=== PATIENT | female | born 1955 | race Caucasian/White ===

== ENCOUNTER → 2017-12-09 08:12 | Outpatient (CLI) | payer OTHER, SELFPAY ==
--- NOTE | 2017-12-09 | DI.MG.S_ITS ---
BILATERAL DIGITAL SCREENING MAMMOGRAM 3D/2D WITH CAD: 12/09/2017 CLINICAL: Routine screening. Family history of breast cancer. Comparison is made to exams dated: 11/19/2016 mammogram, 11/19/2015 mammogram, and 09/09/2014 mammogram - [facility]. The tissue of both breasts is heterogeneously dense. This may lower the sensitivity of mammography. Current study was also evaluated with a Computer Aided Detection (CAD) system. There is an oval mass in the left breast at 1 o'clock anterior depth. There also is an oval mass in the left breast at 12 o'clock posterior depth. No other significant masses, calcifications, or other findings are seen in either breast. IMPRESSION: INCOMPLETE: NEEDS ADDITIONAL IMAGING EVALUATION The oval mass in the left breast at 1 o'clock anterior depth is indeterminate. Additional views with possible ultrasound are recommended. The oval mass in the left breast at 12 o'clock posterior depth is indeterminate. Additional views with possible ultrasound are recommended. This exam was interpreted at Station ID: [id number]. NOTE: For mammograms, a report in lay terms will be sent to the patient. Approximately 15% of breast malignancies will not be visualized mammographically. In the management of a palpable breast mass, a negative mammogram must not discourage biopsy of a clinically suspicious lesion. Electronically Signed By: Fabi castillo/frederick:12/09/2017 10:15:30 letter sent: Additional Imaging Needed ACR BI-RADS Category 0: Incomplete [id number]
== END ==
PROVIDERS: Family Provider Family Medicine; PCP Family Medicine; Visit Provider Family Medicine
DX: Z12.31 Encounter for screening mammogram for malignant neoplasm of breast (principal); Z80.3 Family history of malignant neoplasm of breast; R92.8 Other abnormal and inconclusive findings on diagnostic imaging of breast
CPT/HCPCS: 77063; 77067

== ENCOUNTER → 2017-12-22 12:46 | Outpatient (CLI) | payer OTHER, SELFPAY ==
--- NOTE | 2017-12-22 12:49 | DI.US.S_ITS ---
ULTRASOUND OF LEFT BREAST: 12/22/2017 CLINICAL: Patient returns for additional imaging over a suspected mass x 2 in the left breast. Comparison is made to exams dated: 12/22/2017 mammogram, 12/09/2017 mammogram, 11/25/2016 mammogram, and 11/19/2016 mammogram - [facility]. Color flow ultrasound of the left breast was performed. Garland scale images of the real-time examination were reviewed. There is a benign 1.3 cm x 1.3 cm x 0.8 cm cyst in the left breast at 12 o'clock posterior depth 8 cm from the nipple. This correlates with mammography findings. There also is a benign 0.6 cm x 0.6 cm x 0.5 cm cyst in the left breast at 12 o'clock anterior depth 2 cm from the nipple. This correlates with mammography findings. IMPRESSION: BENIGN There is no sonographic evidence of malignancy. The 1.3 cm x 1.3 cm x 0.8 cm cyst in the left breast at 12 o'clock posterior depth is benign. The 0.6 cm x 0.6 cm x 0.5 cm cyst in the left breast at 12 o'clock anterior depth is benign. A 1 year screening mammogram is recommended. This exam was interpreted at Station ID: [id number]. Electronically Signed By: Lennox man/frederick:12/23/2017 12:59:48 letter sent: Normal Exam Ultrasound BI-RADS: 2 Benign
--- NOTE | 2017-12-22 12:49 | DI.MG.S_ITS ---
UNILATERAL LEFT DIGITAL DIAGNOSTIC MAMMOGRAM 3D/2D WITH ADDITIONAL VIEWS: 12/22/2017 CLINICAL: Additional evaluation requested from prior study. Comparison is made to exams dated: 12/09/2017 mammogram, 11/25/2016 mammogram, and 11/19/2016 mammogram - [facility]. The tissue of the left breast is heterogeneously dense. This may lower the sensitivity of mammography. There is a 6 mm round low density mass with a circumscribed margin in the left breast at 12 o'clock anterior depth. There also is a 1.4 cm round low density mass with a circumscribed margin in the left breast at 12 o'clock posterior depth. No other significant masses or calcifications are seen in the breast. IMPRESSION: INCOMPLETE: NEEDS ADDITIONAL IMAGING EVALUATION The 6 mm round low density mass in the left breast at 12 o'clock anterior depth is indeterminate. An ultrasound is recommended. The 1.4 cm round low density mass in the left breast at 12 o'clock posterior depth is indeterminate. An ultrasound is recommended. This exam was interpreted at Station ID: [id number]. NOTE: For mammograms, a report in lay terms will be sent to the patient. Approximately 15% of breast malignancies will not be visualized mammographically. In the management of a palpable breast mass, a negative mammogram must not discourage biopsy of a clinically suspicious lesion. Electronically Signed By: Lennox man/frederick:12/22/2017 16:16:57 ACR BI-RADS Category 0: Incomplete [id number]
== END ==
PROVIDERS: Family Provider Family Medicine; PCP Family Medicine; Visit Provider Family Medicine
DX: R92.8 Other abnormal and inconclusive findings on diagnostic imaging of breast (principal); N60.02 Solitary cyst of left breast
CPT/HCPCS: 76642; 77065; G0279

== ENCOUNTER → 2018-01-26 09:15 | Outpatient (CLI) | payer OTHER, SELFPAY ==
[2018-01-26 09:53] LABS: Add Manual Diff / Slide Review NO; Basophils Percent Auto 0.8 % (0-2); Eosinophils Percent Auto 5.1 % (2-4); Hematocrit 41.8 % (36-46); Hemoglobin 14.2 g/dL (12.0-16.0); Mean Corpuscular HGB Conc 33.9 % (30-36); Mean Corpuscular Hemoglobin 31.8 PG (26-34); Mean Corpuscular Volume 93.7 fL (80-100); Monocytes Percent Auto 7.9 % (3-14); Neutrophils Absolute Auto 2800 /uL (3000-5900); Neutrophils Percent Auto 50.2 % (50-75); Platelet Count 256 X10^3/uL (150-400); Red Blood Cell Count 4.46 X10^6/uL (4.0-5.2); Red Cell Distribution Width 12.8 % (11.6-14.8); White Blood Cell Count 5.5 X10^3/uL (4.5-11.0)
[2018-01-26 10:19] LABS: BUN Creatinine Ratio 17.1 (6-22); Blood Urea Nitrogen 12 mg/dL (7-17); Calcium 9.4 mg/dL (8.4-10.2); Carbon Dioxide 28 mmol/L (22-32); Chloride 106 mmol/L (98-107); Estimated Glomerular Filt Rate > 60.0 mL/min (>60); Glucose 99 mg/dL (80-110); Potassium 4.5 mmol/L (3.4-5.1); Sodium 142 mmol/L (137-145)
[2018-01-26 10:20] LABS: Alanine Aminotransferase 23 IU/L (9-52); Albumin 4.4 g/dL (3.5-5.0); Albumin Globulin Ratio 1.5 (1.0-2.8); Alkaline Phosphatase 51 U/L (38-126); Aspartate Aminotransferase 26 IU/L (14-36); Bilirubin Total 0.6 mg/dL (0.2-1.3); Globulin 2.9 g/dL (1.7-4.1); HDL Cholesterol 103 mg/dL (40-60); HEMOLYSIS < 15 (0-50); Total Protein 7.3 g/dL (6.3-8.2); Triglycerides 158 mg/dL (35-150)
[2018-01-26 10:28] LABS: Cholesterol 323 mg/dL (140-199); LDL Cholesterol Calculated 188 mg/dL (<100)
[2018-01-26 10:46] LABS: TSH w/ Reflex to FT4 2.94 uIU/mL (0.47-4.68)
== END ==
PROVIDERS: Family Provider Family Medicine; PCP Family Medicine; Visit Provider Family Medicine
DX: E78.2 Mixed hyperlipidemia (principal); Z00.00 Encounter for general adult medical examination without abnormal findings
CPT/HCPCS: 36415; 80053; 80061; 84443; 85025

== ENCOUNTER → 2018-02-03 12:56 | Outpatient (CLI) | payer OTHER, SELFPAY ==
[2018-02-07 22:45] LABS: Fecal Immunochemical Test NOT DETECTED
== END ==
PROVIDERS: PCP Family Medicine; Visit Provider Family Medicine
DX: Z12.11 Encounter for screening for malignant neoplasm of colon (principal)
CPT/HCPCS: 82274

== ENCOUNTER → 2018-07-05 10:31 | Outpatient (CLI) | payer OTHER, SELFPAY | PROVIDERS: Family Provider Family Medicine; PCP Family Medicine; Visit Provider Family Medicine | DX: R35.0 Frequency of micturition (principal) | CPT/HCPCS: 87077; 87086; 87147 ==

== ENCOUNTER 2018-07-19 18:26 | Observation (INO) | payer OTHER, SELFPAY ==
[2018-07-19] VITALS (9 sets, daily range): BP systolic 116–156; BP diastolic 64–78; PULSE 61–81; RESP 14–20; TEMP 36.6–36.8; O2SAT 98–100; BMI 21.9
--- NOTE | 2018-07-19 18:33 | DI.RAD.S_ITS ---
PROCEDURE: XR CHEST 1V INDICATIONS: chest pain TECHNIQUE: One view of the chest was acquired. COMPARISON: None. FINDINGS: Surgical changes and devices: None. Lungs and pleura: No pleural effusions or pneumothorax. Lungs are clear. Mediastinum: Mediastinal contours appear normal. Heart size is normal. Bones and chest wall: No suspicious bony lesions. Overlying soft tissues appear unremarkable. IMPRESSION: Normal for age, source of current chest pain symptoms is not seen. Dictated by: Hema Garces M.D. on 07/19/2018 at 19:23 Approved by: Hema Garces M.D. on 07/19/2018 at 19:24
--- NOTE | 2018-07-19 19:18 | ED_ITS ---
HPI - Chest Pain General Chief Complaint: Chest Pain Stated Complaint: DESCRIBES WEIRD CHEST PAINS Time Seen by Provider: 07/19/18 18:49 Source: patient Mode of arrival: ambulatory Limitations: no limitations History of Present Illness HPI narrative: Patient is a 63-year-old female who presents with epigastric pain. She says she has never experienced anything like this in the past. Of it started around 530 she has had multiple episodes that come about every 15 min or so. She says they last for about 2 min completely resolved. She says it does radiate straight through to her back. She denies any nausea no shortness of breath no vomiting. She says it is not associated with exertion or rest. She is currently chest pain free. No known coronary artery disease. She says she does have hyperlipidemia, she was on medication for it but is no longer. MD complaint: chest pain Related Data Home Medications Medication Instructions Recorded Confirmed aspirin 81 mg PO QDAY #0 01/31/17 07/12/18 cholecalciferol (vitamin D3) 2,000 2,000 unit PO DAILY 02/07/18 07/12/18 unit capsule Previous Rx's Medication Instructions Recorded acyclovir 200 mg capsule 200 mg PO DAILY PRN #60 cap 02/07/18 coenzyme Q10 100 mg capsule 100 mg PO DAILY #90 cap 02/07/18 estradiol 1 mg tablet 0.5 mg PO DAILY #15 tab 02/07/18 vit C,E,zinc,copper-ijhig7b 250 1 cap PO DAILY #90 cap 02/07/18 mg-lutein 5 mg-zeaxanthin 1 mg capsule Allergies Allergy/AdvReac Type Severity Reaction Status Date / Time latex Allergy Mild SKIN Verified 07/19/18 18:34 IRRITATION erythromycin base AdvReac Mild GI UPSET Verified 07/19/18 18:34 Review of Systems Review of Systems GENERAL: Denies chills, fatigue, malaise, fever, sweats, travel HEENT: Denies sinus pain, ear pain, sore throat, difficulty swallowing, neck pain RESPIRATORY: Denies dyspnea, cough, wheezing, hemoptysis, sputum. CARDIOVASCULAR: See HPI GASTROINTESTINAL: Denies nausea, vomiting, abdominal pain, diarrhea, constipation, melena. : Denies dysuria, frequency, incontinence, hematuria, urinary retention, flank pain. MUSCULOSKELETAL: Denies weakness, joint pain, or bony pain SKIN: No rash, no erythema, no pruritus NEUROLOGIC: Denies weakness, dizziness, headache, numbness, change in speech, confusion PSYCHIATRIC: No concerning psychosocial issues. 12 point review of systems is negative except for those stated above and HPI [facility] Social History household members: spouse Smoking Status: Never smoker Exam Initial Vital Signs Initial Vital Signs: Vital Signs Temperature 98.2 F 07/19/18 18:34 Pulse Rate 81 07/19/18 18:34 Respiratory Rate 15 07/19/18 18:34 Blood Pressure 156/78 H 07/19/18 18:34 Pulse Oximetry 99 07/19/18 18:34 GENERAL: Well-appearing, well-nourished and in no acute distress. HEENT: Head atraumatic,EOMI, pupils reactive, face symmetric, moist mucous membranes CARDIOVASCULAR: Regular rate and rhythm without murmurs, rubs or gallops. RESPIRATORY: Breath sounds equal bilaterally, no wheezes rales or rhonchi. ABDOMEN: Soft, nontender. Normoactive bowel sounds all 4 quadrants. No guarding or rebound. : No CVA tenderness EXTREMITIES: Normal range of motion, no clubbing or edema. Neurovascularly intact NEUROLOGICAL: Alert and oriented x4.Normal gait and speech. Cranial nerves II through XII grossly intact. SKIN: Warm, dry, no laceration, no petechiae, no rashes or lesions. Scores HEART Score Heart Score history: Moderately Suspicious Heart Score EKG: Non-Specific repolarization disturbance Heart Score Age: 45-64 years old Heart Score risk factors: 1-2 risk factors Heart Score troponin: < or = to normal limit Heart Score Total: 4 Course Orders Ordered: ED Orders 07/19/18 18:33 XR chest 1V Stat 07/19/18 19:15 Complete Blood Count AUTO DIFF Stat Comprehensive Metabolic Panel Stat Lipase Stat Partial Thromboplastin Time Stat Prothrombin Time INR Stat Troponin & CK Cardiac Panel Stat 07/19/18 19:22 EKG-12 Lead Stat 07/19/18 23:48 Consult to Physician Routine 07/20/18 03:15 Troponin I Stat Sodium Chloride (Normal Saline 0.9% Flush) 10 ml IV PRN PRN PRN Reason: Flush Sodium Chloride (Normal Saline 0.9% Flush) 10 ml IV BID CHONG Discontinued Medications Aspirin (Aspirin Chew) 324 mg PO NOW ONE Stop: 07/19/18 19:22 Last Admin: 07/19/18 19:29 Dose: 324 mg Nitroglycerin (Nitrostat) 0.4 mg SL [id number] PRN PRN Reason: Chest Pain Last Admin: 07/19/18 19:25 Dose: 0.4 mg Vital Signs - 8 hr 07/19/18 18:34 07/19/18 19:00 07/19/18 19:25 Temperature 98.2 F Pulse Rate 81 73 78 Respiratory Rate 15 14 Blood Pressure 156/78 H 124/72 Blood Pressure [Left Arm] 124/72 Pulse Oximetry 99 100 07/19/18 19:30 07/19/18 20:00 07/19/18 20:30 Temperature Pulse Rate 73 63 67 Respiratory Rate 19 20 Blood Pressure 133/71 Blood Pressure [Left Arm] 116/64 131/66 Pulse Oximetry 100 100 07/19/18 21:00 07/19/18 21:30 07/19/18 22:10 Temperature 97.8 F Pulse Rate 64 77 69 Respiratory Rate 14 19 16 Blood Pressure 150/75 H Blood Pressure [Left Arm] 120/74 124/69 Pulse Oximetry 99 99 07/20/18 00:45 Temperature 98.1 F Pulse Rate 63 Respiratory Rate 16 Blood Pressure 120/68 Blood Pressure [Left Arm] Pulse Oximetry 97 MDM - Chest Pain Lab Data Attestation: I reviewed the patient's lab results. Result diagrams: 07/19/18 19:15 07/19/18 19:15 Lab Results 07/19/18 07/19/18 07/19/18 Range/Units 19:15 19:15 19:15 WBC 7.3 (4.5-11.0) X10^3/uL RBC 4.38 (4.0-5.2) X10^6/uL Hgb 13.6 (12.0-16.0) g/dL Hct 40.5 (36-46) % MCV 92.3 (80-100) fL MCH 31.0 (26-34) PG MCHC 33.6 (30-36) % RDW 12.7 (11.6-14.8) % Plt Count 286 (150-400) X10^3/uL Neut % (Auto) 51.7 (50-75) % Lymph % (Auto) 38.4 (25-40) % [place] % (Auto) 6.0 (3-14) % Eos % (Auto) 2.7 (2-4) % Baso % (Auto) 1.2 (0-2) % Neut # (Auto) 3800 (5937-2856) /uL PT 11.5 (10.1-12.7) SECONDS INR 1.0 (0.9-1.3) APTT 29 (26.4-36.2) SECONDS Sodium 140 (137-145) mmol/L Potassium 3.9 (3.4-5.1) mmol/L Chloride 104 (98-107) mmol/L Carbon Dioxide 27 (22-32) mmol/L BUN 18 H (7-17) mg/dL Creatinine 0.80 (0.52-1.04) mg/dL Estimated GFR > 60.0 (>60) mL/min BUN/Creatinine Ratio 22.5 H (6-22) Glucose 93 (80-110) mg/dL Calcium 9.7 (8.4-10.2) mg/dL Total Bilirubin 0.1 L (0.2-1.3) mg/dL AST 31 (14-36) IU/L ALT 24 (9-52) IU/L Alkaline Phosphatase 60 (38-126) U/L Total Creatine Kinase 105 (30-135) U/L CK-MB (CK-2) 1.83 (<2.37) ng/mL CK-MB (CK-2) Rel Index 1.7 (1.5-5.0) % Troponin I < 0.012 (0.01-0.034) ng/mL Total Protein 7.5 (6.3-8.2) g/dL Albumin 4.5 (3.5-5.0) g/dL Globulin 3.0 (1.7-4.1) g/dL Albumin/Globulin Ratio 1.5 (1.0-2.8) Lipase 180 (23-300) U/L Imaging Data Chest x-ray: Radiologist's impression: PROCEDURE: XR CHEST 1V INDICATIONS: chest pain TECHNIQUE: One view of the chest was acquired. COMPARISON: None. FINDINGS: Surgical changes and devices: None. Lungs and pleura: No pleural effusions or pneumothorax. Lungs are clear. Mediastinum: Mediastinal contours appear normal. Heart size is normal. Bones and chest wall: No suspicious bony lesions. Overlying soft tissues appear unremarkable. IMPRESSION: Normal for age, source of current chest pain symptoms is not seen. Dictated by: Hema Garces M.D. on 07/19/2018 at 19:23 ECG Data Attestation: I personally reviewed and interpreted this ECG as follows: Prior ECG tracings: not available for review Interpretation: EKG 1.: Normal sinus rhythm rate 77 IN interval 170 for Q-wave noted in lead 3 with T-wave inversion no priors to compare no acute ST elevations EKG 2.: Normal sinus rhythm rate 67 no changes from prior persistent Q-wave and T-wave inversion in lead 3 MDM Narrative Medical decision making narrative: Patient's symptoms are concerning for cardiac. His she actually does have an episode while in the ED she received nitroglycerin which does relieve her chest pain. No further symptoms. I discussed case with Dr. Ashby who agrees with observation. Discharge Plan Departure Patient Disposition: Admitted as Observation Clinical Impression: Chest pain Discharge Date/Time: 07/19/18 22:07 Interventions: ED Discharge Assessment Last Done: 07/19/18 22:06 Admit Date/Time: 07/19/18 21:48 Admit Provider: Juan Ashby
[2018-07-19] MEDS: NITROGLYCERIN 0.4 MG SL TAB SL (19:25)
[2018-07-19 19:27] LABS: Add Manual Diff / Slide Review NO; Basophils Percent Auto 1.2 % (0-2); Eosinophils Percent Auto 2.7 % (2-4); Hematocrit 40.5 % (36-46); Hemoglobin 13.6 g/dL (12.0-16.0); Lymphocytes Percent Auto 38.4 % (25-40); Mean Corpuscular HGB Conc 33.6 % (30-36); Mean Corpuscular Volume 92.3 fL (80-100); Neutrophils Absolute Auto 3800 /uL (1500-7000); Neutrophils Percent Auto 51.7 % (50-75); Platelet Count 286 X10^3/uL (150-400); Red Blood Cell Count 4.38 X10^6/uL (4.0-5.2); Red Cell Distribution Width 12.7 % (11.6-14.8); White Blood Cell Count 7.3 X10^3/uL (4.5-11.0)
[2018-07-19] MEDS: ASPIRIN 81 MG TAB 324 MG PO (19:29)
[2018-07-19 19:37] LABS: Alanine Aminotransferase 24 IU/L (9-52); Albumin 4.5 g/dL (3.5-5.0); Albumin Globulin Ratio 1.5 (1.0-2.8); Alkaline Phosphatase 60 U/L (38-126); Aspartate Aminotransferase 31 IU/L (14-36); BUN Creatinine Ratio 22.5 (6-22); Bilirubin Total 0.1 mg/dL (0.2-1.3); Blood Urea Nitrogen 18 mg/dL (7-17); Calcium 9.7 mg/dL (8.4-10.2); Carbon Dioxide 27 mmol/L (22-32); Chloride 104 mmol/L (98-107); Creatine Kinase 105 U/L (30-135); Estimated Glomerular Filt Rate > 60.0 mL/min (>60); Glucose 93 mg/dL (80-110); HEMOLYSIS < 15 (0-50); Lipase 180 U/L (23-300); Potassium 3.9 mmol/L (3.4-5.1); Sodium 140 mmol/L (137-145); Total Protein 7.5 g/dL (6.3-8.2)
[2018-07-19 19:52] LABS: Troponin I < 0.012 ng/mL (0.01-0.034)
[2018-07-19 19:53] LABS: CKMB % Relative Index 1.7 % (1.5-5.0); Creatine Kinase MB 1.83 ng/mL (<2.37)
[2018-07-19 19:56] LABS: Prothrombin Time 11.5 SECONDS (10.1-12.7)
[2018-07-19 19:59] LABS: PTT Partial Thromboplastin Tim 29 SECONDS (26.4-36.2)
--- NOTE | 2018-07-20 | DI.ECHO.S_ITS ---
[facility] +---------+ Hospital +---------+ : : [address] [place] : : : : [id number] : : : : Phone: [phone]+ Echocardiogram Report + + :Name: LUIS F TORRES Study Date: 07/20/2018 Height: 64 in : :[facility] Weight: 129 lb : : Gender: Female BSA: 1.6 m2 : :: 1955 Age: 63 yrs BP: 130/72 mmHg: :Reason For Study: Chest pain : : Performed By: Gabby Teresa : :Referring: PÉREZ MARTINEZ : + + Interpretation Summary Limited Echo 1) Normal left ventricular thickness, size, wall motion, and systolic function (EF 60-65%). 2) No pericardial effusion present. 3) The right ventricular systolic pressure is estimated to be at least 22 mmHg based on an estimated right atrial pressure of 3 mm Hg. 4) No prior Echo available for comparison. Procedure: A two-dimensional transthoracic echocardiogram with color flow and Doppler was performed in limited views only. The study quality was technically good. There is no prior echocardiogram noted for this patient. The patient was in normal sinus rhythm during the exam. Left Ventricle: The left ventricle is normal in size, wall thickness, and systolic function without any focal wall motion abnormalities. The ejection fraction is estimated to be 60-65%. Right Ventricle: The right ventricle grossly appears normal in size with probable normal systolic function. Atria: The left atrial size is normal. Right atrial size is normal. The interatrial septum is intact with no evidence for an atrial septal defect. Mitral Valve: The mitral valve is normal in structure and function. Aortic Valve: The aortic valve is not well visualized. The aortic valve opens well. No aortic regurgitation is present. Tricuspid Valve: The tricuspid valve is normal in structure and function. There is a trace or physiologic amount of tricuspid regurgitation. The right ventricular systolic pressure is estimated to be at least 22 mmHg based on an estimated right atrial pressure of 3 mm Hg. Pulmonic Valve: The pulmonic valve is normal in structure and function. There is no pulmonic valvular regurgitation. Great Vessels: The aortic root is normal size. The dimensions of the ascending aorta are normal. The IVC is of normal diameter and collapses greater than 50% with a sniff. This suggests a low right atrial pressure of 3 mm Hg. Pericardium/ Pleura There is no pericardial effusion. There is no pleural effusion. MMode/2D Measurements & Calculations LVIDd: 4.7 cm Ao root diam: 3.4 cm LVIDs: 2.7 cm Aortic Jxn: 2.8 cm FS: 43.1 % asc Aorta Diam: 3.0 cm IVSd: 0.68 cm LVPWd: 0.79 cm LV clark. diameter/BSA (cm/m^2): 2.9 LV sys. diameter/BSA (cm/m^2): 1.6 LA dimension: 2.7 cm IVC diam: 1.0 cm Doppler Measurements & Calculations TR max cecily: 215.3 cm/sec TR max P.5 mmHg PA V2 max: 105.3 cm/sec PA V2 mean: 71.0 cm/sec PA mean P.3 mmHg PA Accel Time: 0.16 sec Reading Physician:01:26 PM
--- NOTE | 2018-07-20 00:32 | PC.NURSE ---
2245-Pt arrived to room 231 from ED via bed. A/O x3, 99%RA, LS clear, denies SOB, pain and nausea. Plan is to have a stress test in AM. TANVIR FONSECA, Indep to BRP. Call light in reach and bed alarm on for safety. Dr. Ashby orders for reg diet, no caffeine, but unable to put in computer.
[2018-07-20 00:45] VITALS: BP 120/68; PULSE 63; RESP 16; TEMP 36.7; O2SAT 97
[2018-07-20 04:03] LABS: Troponin I < 0.012 ng/mL (0.01-0.034)
[2018-07-20 06:31] VITALS: BP 124/67; PULSE 66; RESP 16; TEMP 36.6; O2SAT 99
[2018-07-20 08:30] VITALS: BP 130/72; PULSE 71; RESP 18; TEMP 36.4; O2SAT 99
[2018-07-20] MEDS: SODIUM CHLORIDE 0.9% FLUSH 10 ML IV (08:37)
[2018-07-20 08:49] VITALS: O2SAT 99
--- NOTE | 2018-07-20 09:30 | P.HP_ITS ---
History of Present Illness Date Patient Seen: 07/20/18 Time Patient Seen: 07:25 Chief complaint: DESCRIBES WEIRD CHEST PAINS Narrative: Chest pain Patient was admitted to the ER last night having experience intermittent chest pain for most of the day. She believes chest pain started about 17 30 last evening. Pain is retrosternal burning in nature some radiation of his subcostal bilaterally. Later on and course the evening she began to have pain radiating to her back. She was concerned about this being cardiac present to the ER. She was a may evaluated in ER and felt to have chest pain of unknown etiology. The she did have episode of chest pain emergency room that apparently was resolved with nitroglycerin. She is admitted for overnight observation and monitoring and assessment for possible atypical chest pain and coronary artery disease. Patient has history of hyperlipidemia that is not being treated. Family history is negative for any coronary artery disease. Patient History Medical History Hyperlipidemia (Chronic) Shoulder pain (Chronic ~2008) Abnormal Pap smear of cervix (Resolved) Chicken pox (Resolved) Colon polyps (Resolved 2014) Hemorrhoids (Resolved) History of vaginal delivery (Resolved) Melanoma (Resolved 2013) Mumps (Resolved) Nodular infiltrative basal cell carcinoma (BCC) (Resolved 10/2012) Varicose veins of left lower extremity (Resolved) Wart (Resolved 1973) Surgical History Anesthesia (Resolved) Dental root implant present (Resolved 2009) History of cryosurgery (Resolved 1999) History of surgery on extremity (Resolved ~2004) History of tonsillectomy (Resolved 1959) Status post colonoscopy (Resolved 03/2004) Status post colonoscopy (Resolved 05/2011) Status post colonoscopy (Resolved 09/2014) Family & Social History Family History: Reviewed 07/20/18 by Juan Ashby MD Social History: household members spouse Prior Living Arrangements House Safety & Behavioral: Feels Safe in Current Yes Environment Suicidal Ideation Description None Suicide Plan Description No Plan Tobacco & Substance use: Smoking Status Never smoker alcohol intake frequency holiday/special occasion Substance Use Type does not use Meds Home Medications Medication Instructions Recorded Confirmed Type aspirin 81 mg PO QDAY #0 01/31/17 07/20/18 History acyclovir 200 mg capsule 200 mg PO DAILY PRN #60 cap 02/07/18 07/20/18 Rx cholecalciferol (vitamin D3) 2,000 2,000 unit PO DAILY 02/07/18 07/20/18 History unit capsule coenzyme Q10 100 mg capsule 100 mg PO DAILY #90 cap 02/07/18 07/20/18 Rx estradiol 1 mg tablet 0.5 mg PO DAILY #15 tab 02/07/18 07/20/18 Rx vit C,E,zinc,copper-[id number] 250 1 cap PO DAILY #90 cap 02/07/18 07/20/18 Rx mg-lutein 5 mg-zeaxanthin 1 mg capsule Allergies Allergy/AdvReac Type Severity Reaction Status Date / Time latex Allergy Mild SKIN Verified 07/19/18 18:34 IRRITATION erythromycin base AdvReac Mild GI UPSET Verified 07/19/18 18:34 Review of Systems Review of Systems All systems reviewed & are unremarkable except as noted in HPI and below Exam Vital Signs (past 8 hours): - 07/20/18 06:31 07/20/18 08:30 07/20/18 08:49 Temperature 97.8 F 97.6 F Pulse Rate 66 71 Respiratory Rate 16 18 Blood Pressure 124/67 130/72 Pulse Oximetry 99 99 99 Oxygen Delivery Method Room Air Oxygen Flow Rate 0 Narrative Exam Narrative: Gen.: Skin: Warm well perfused. No prominent lesions. Nonicteric. HEENT: PERRL., normal EOM, external ears canals TMs normal, nasal mucosa normal and midline septum, oropharynx without lesions. Neck: Trachea midline. Thyroid nontender and not enlarged. Carotids without bruits. No lymphadenopathy Back: No obvious deformity or tenderness. Chest: Clear to P&A. Symmetric. CV: RRR no murmur or gallop. No JVD. Abdomen: No masses bruits tenderness or visceromegaly. Neuro: Cranial nerves II through XII grossly intact. Sensory and motor exams intact. Gait normal. Mental status: Intact for screening Extremities: No cyanosis clubbing or edema Musculoskeletal: No gross deformities Lymphatics: Negative for lymphadenopathy, supraclavicular axillary or inguinal Objective Labs Result Diagrams: 07/19/18 19:15 07/19/18 19:15 Labs: Laboratory Results - last 24 hr 07/19/18 07/19/18 07/19/18 19:15 19:15 19:15 WBC 7.3 RBC 4.38 Hgb 13.6 Hct 40.5 MCV 92.3 MCH 31.0 MCHC 33.6 RDW 12.7 Plt Count 286 Neut % (Auto) 51.7 Lymph % (Auto) 38.4 [place] % (Auto) 6.0 Eos % (Auto) 2.7 Baso % (Auto) 1.2 Neut # (Auto) 3800 PT 11.5 INR 1.0 APTT 29 Sodium 140 Potassium 3.9 Chloride 104 Carbon Dioxide 27 BUN 18 H Creatinine 0.80 Estimated GFR > 60.0 BUN/Creatinine Ratio 22.5 H Glucose 93 Calcium 9.7 Total Bilirubin 0.1 L AST 31 ALT 24 Alkaline Phosphatase 60 Total Creatine Kinase 105 CK-MB (CK-2) 1.83 CK-MB (CK-2) Rel Index 1.7 Troponin I < 0.012 Total Protein 7.5 Albumin 4.5 Globulin 3.0 Albumin/Globulin Ratio 1.5 Lipase 180 07/20/18 03:18 WBC RBC Hgb Hct MCV MCH MCHC RDW Plt Count Neut % (Auto) Lymph % (Auto) [place] % (Auto) Eos % (Auto) Baso % (Auto) Neut # (Auto) PT INR APTT Sodium Potassium Chloride Carbon Dioxide BUN Creatinine Estimated GFR BUN/Creatinine Ratio Glucose Calcium Total Bilirubin AST ALT Alkaline Phosphatase Total Creatine Kinase CK-MB (CK-2) CK-MB (CK-2) Rel Index Troponin I < 0.012 Total Protein Albumin Globulin Albumin/Globulin Ratio Lipase labs reviewed as above Assessment & Plan Plan: Assessment/Plan Narrative: Patient admitted through the ER last night for atypical chest pain. Minimal risk factors basically would be hyperlipidemia although she her lipid profile showed she has a increased amount of HDL. Patient to have a cardiac workup including echocardiogram. Stress test to be scheduled. Presumed patient will be discharged after the above. Parentheses attempt to schedule stress test 0 unsuccessful today she will be have echocardiogram at noon and discharge stress test will be scheduled as an outpatient Quality VTE Deep Vein Thrombosis/Pulmonary Embolism Present on Admission: No
[2018-07-20 12:00] VITALS: BP 130/68; PULSE 69; RESP 16; TEMP 36.7; O2SAT 97
--- NOTE | 2018-07-20 15:16 | CM.DANOTE ---
Discharge Planning/Care Management DCP: assessment: case received, EMR reviewed and discussed in Team Rounds this morning. Pt is a 63 year old female who admitted last night to care of A physician team. Payer: [facility]. Plan per Dr. Ashby was for an ECHO at noon and, if pt was stable for same she would go home with cardiac stress test as an outpt (as per his report, this test was not available today ). Checked in now, see that pt has left already for home. A followup. Advanced directive, confirm from FAMILY Start: 07/20/18 00:30 Freq: Q24H Status: Discharge Protocol: Document 07/20/18 00:35 HCW (Rec: 07/20/18 03:28 HCW [id number]) Advance Directive, confirm on record Time 03:28 Person contacted Lotus Mazariegos Copy received No CM Discharge Assessment Start: 07/20/18 15:15 Freq: Status: Active Protocol: Document 07/20/18 15:15 ITV (Rec: 07/20/18 15:16 ITV [id number]) Discharge Planning Assessment Advance Directives? No History Provided By Patient Medical Record Prior Living Arrangements House Household Members spouse Review Status In Process Next Review Type Continued Stay Review
== END 2018-07-20 14:03 | disposition home or self-care (01) ==
LOC: ED 21:34 → AC 21:49
PROVIDERS: Admitting Provider Family Medicine; Emergency Provider Emergency Medicine; Family Provider Family Medicine; PCP Family Medicine; Visit Provider Family Medicine
DX: R07.89 Other chest pain (principal); E78.5 Hyperlipidemia, unspecified
CPT/HCPCS: 36415; 36591; 71045; 80053; 82550; 82553; 83690; 84484; 85025; 85610; 85730; 93005; 93306; 99283; 99285; G0378

== ENCOUNTER → 2018-08-16 10:36 | Outpatient (CLI) | payer OTHER, SELFPAY ==
[2018-07-19 22:35] VITALS: BMI 21.9
--- NOTE | 2018-08-16 11:32 | P.PCN_ITS ---
Cardiac Stress Test Report Referral & Results Date Patient Seen: 08/16/18 Requesting provider: Juan Ashby Indication: Chest pain Rest ECG: Unremarkable Procedure Note: Today following both written and verbal informed consent the patient was exercised according to a standard Umesh protocol patient went for a total of for minutes 47 sec achieving a maximum heart rate of 149 maximum systolic blood pressure of 170 to. This is approximately 7.0 METS. Exercise was terminated at this point because of targets her med and patient was frankly unable to keep up with the treadmill as she had severe difficulty figuring out how to walk on a treadmill. Patient was also given Cardiolite through a previously started Hep-Lock IV by the property technician approximately 1 minute prior to the cessation of exercise. There are no ST-T segment changes Normal heart rate and blood pressure response to exercise Functional aerobic impairment rated 10% in sedentary scale No dysrhythmia Impression: No evidence of ischemia based on ECG criteria Average exercise capacity Perfusion imaging to be reported separately Please note: Actual ECG tracings can be found in the PACS system.
--- NOTE | 2018-08-17 17:25 | DI.NM.S_ITS ---
DATE OF SERVICE: 08/16/2018 PROCEDURE PERFORMED: Exercise treadmill stress and rest myocardial perfusion imaging with gating to assess ejection fraction and regional wall motion. ORDERING PROVIDER: Juan Ashby MD INDICATIONS: The patient is a 63-year-old female without previous coronary disease it was recently evaluated in the emergency room with an episode of prolonged chest pain. EXERCISE TREADMILL TESTING: The patient was able to exercise for a total of 4 minutes 47 seconds on a standard Umesh protocol suggesting moderately impaired exercise capacity with an BRISA of +25%. She had normal heart rate and blood pressure response achieving a maximum heart rate of 149 bpm (96% of her predicted maximum). She had no chest discomfort. Her resting ECG appears normal with sinus rhythm. There is considerable motion artifact during stress testing but immediate post stress tracing show no concerning ST segment abnormalities. No arrhythmias were identified. At 3 minutes 30 seconds of exercise, at heart rate of 136 bpm, 27.8 mCi of technetium-99 Myoview was injected and the patient was imaged 15 minutes later using a gated SPECT acquisition protocol. The patient returned the following day and was reinjected with an additional 26.4 mCi of technetium-99 Myoview and was imaged 30 minutes later, again using a gated SPECT acquisition protocol. FINDINGS: 1. Raw Data: There is fairly good myocardial tracer uptake with only slight breast shadows noted. The lung/heart ratio is normal at 0.24 with a normal TID ratio of 0.89. 2. Quantitative Gated SPECT: Post stress ejection fraction is calculated at 80% without any focal wall motion abnormality. Resting ejection fraction is estimated at 74% with a normal resting end-diastolic volume of 76 mL. 3. Myocardial Perfusion Imaging: Immediate post stress supine images shows a normal perfusion pattern without any perfusion defects, supported by normal perfusion imaging in the prone position. The resting images show an identical perfusion pattern without any areas of improvement. CONCLUSION: 1. Normal myocardial perfusion study. 2. No evidence for myocardial ischemia, previous myocardial infarction. 3. Normal left ventricular systolic function without any focal wall motion abnormality. 4. Moderately impaired exercise capacity without angina or ECG evidence of ischemia YairLotus - RS/zena/ab doc#: [id number]/job#: [id number] dd: 08/17/2018 16:41:00 dt: 08/17/2018 17:10:00 DICTATING MD/COPIES TO: Farzad Avila MD; Juan Ashby MD COPIES MNE: CLOVIS; JOSELYN
== END ==
PROVIDERS: PCP Family Medicine; Visit Provider Family Medicine
DX: R07.9 Chest pain, unspecified (principal)
CPT/HCPCS: 78452; 93016; 93017; 93018; A9502

== ENCOUNTER → 2018-12-27 11:44 | Outpatient (CLI) | payer OTHER, SELFPAY ==
[2018-07-19 22:35] VITALS: BMI 21.9
--- NOTE | 2018-12-27 | DI.MG.S_ITS ---
BILATERAL DIGITAL SCREENING MAMMOGRAM 3D/2D WITH CAD: 12/27/2018 CLINICAL: Routine screening. Family history of breast cancer. Comparison is made to exams dated: 12/09/2017 mammogram, 11/25/2016 mammogram, and 11/19/2016 mammogram - [facility]. The tissue of both breasts is heterogeneously dense. This may lower the sensitivity of mammography. Current study was also evaluated with a Computer Aided Detection (CAD) system. There is an irregular equal density asymmetry with an indistinct margin in the right breast at 1 o'clock middle depth. There is architectural distortion associated with the asymmetry. No other significant masses, calcifications, or other findings are seen in either breast. IMPRESSION: INCOMPLETE: NEEDS ADDITIONAL IMAGING EVALUATION The irregular equal density asymmetry in the right breast is indeterminate. Mediolateral and spot compression views as well as additional views with possible ultrasound are recommended. This exam was interpreted at Station ID: [id number]. NOTE: For mammograms, a report in lay terms will be sent to the patient. Approximately 15% of breast malignancies will not be visualized mammographically. In the management of a palpable breast mass, a negative mammogram must not discourage biopsy of a clinically suspicious lesion. Electronically Signed By: Ramiro felder/frederick:12/27/2018 17:04:18 copy to: Minna Arreaga letter sent: Additional Imaging Needed ACR BI-RADS Category 0: Incomplete [id number]
== END ==
PROVIDERS: PCP Family Medicine; Visit Provider Internal Medicine
DX: Z12.31 Encounter for screening mammogram for malignant neoplasm of breast (principal); Z80.3 Family history of malignant neoplasm of breast
CPT/HCPCS: 77063; 77067

== ENCOUNTER → 2019-01-22 08:15 | Outpatient (CLI) | payer OTHER, SELFPAY ==
[2018-07-19 22:35] VITALS: BMI 21.9
--- NOTE | 2019-01-22 | DI.MG.S_ITS ---
UNILATERAL RIGHT DIGITAL DIAGNOSTIC MAMMOGRAM 3D/2D WITH ADDITIONAL VIEWS: 01/22/2019 CLINICAL: Additional evaluation requested from prior study. Comparison is made to exams dated: 12/27/2018 mammogram, 12/09/2017 mammogram, and 11/25/2016 mammogram - [facility]. The tissue of right breast is heterogeneously dense. This may lower the sensitivity of mammography. There is a 5mm irregular equal density asymmetry with an indistinct margin in the medial right breast middle depth. This is seen in additional views localizing to the lower, inner quadrant on CC view but not definitively confirmed on the lateral view. There is suggestion of architectural distortion associated with the asymmetry. No other significant masses or calcifications are seen in the breast. IMPRESSION: INCOMPLETE: NEEDS ADDITIONAL IMAGING EVALUATION The irregular equal density asymmetry in the right breast is indeterminate. An ultrasound is recommended and is scheduled to immediately follow this examination. This exam was interpreted at Station ID: [id number]. NOTE: For mammograms, a report in lay terms will be sent to the patient. Approximately 15% of breast malignancies will not be visualized mammographically. In the management of a palpable breast mass, a negative mammogram must not discourage biopsy of a clinically suspicious lesion. Electronically Signed By: Demetrius Fleming M.D. aty/:01/22/2019 09:09:42 copy to: Minna Arreaga ACR BI-RADS Category 0: Incomplete [id number]
--- NOTE | 2019-01-22 | DI.US.S_ITS ---
ULTRASOUND OF RIGHT BREAST: 01/22/2019 CLINICAL: Additional evaluation requested from prior study. Comparison is made to exams dated: 01/22/2019 mammogram, 12/27/2018 mammogram, 12/09/2017 mammogram, and 11/25/2016 mammogram - [facility]. Color flow and real-time ultrasound of the right breast were performed. Garland scale images of the real-time examination were reviewed. There is 0.6 cm x 0.2 cm x 1.6 cm wider than tall irregular mass in the right breast at 5 o'clock anterior depth 4 cm from the nipple with the long axis parallel to the skin. This irregular mass is hypoechoic. Color flow imaging demonstrates that there is an adjacent vascularity. This probably correlates with mammographic finding of concern. There also is 0.5 cm x 0.4 cm x 0.6 cm oval cyst in the right breast at 12 o'clock anterior depth 4 cm from the nipple. This oval cyst is hypoechoic with internal echoes. Color flow imaging demonstrates that there is no vascularity present. Additionally, there is 1.7 cm x 0.7 cm cyst in the right breast at 2 o'clock middle depth 4 cm from the nipple. This cyst is hypoechoic with internal echoes and posterior acoustic enhancement. Color flow imaging demonstrates that there is no vascularity present. IMPRESSION: SUSPICIOUS OF MALIGNANCY The 0.6 cm x 0.2 cm x 1.6 cm wider than tall irregular mass in the right breast at 5 o'clock anterior depth is suspicious of malignancy. This probably correlates with the mammographic finding of concern. An ultrasound guided biopsy is recommended. The 0.5 cm x 0.4 cm x 0.6 cm oval cyst in the right breast at 12 o'clock anterior depth likely represents a complicated cyst and is probably benign. The 1.7 cm x 0.7 cm cluster of complicated cysts in the right breast at 2 o'clock middle depth is also probably benign. Recommend short interval follow up mammogram and ultrasound of the right breast to document stability. Further evaluation may be warranted pending biopsy results of the 5:00 position lesion. This exam was interpreted at Station ID: [id number]. Electronically Signed By: Demetrius Fleming M.D. at/:01/22/2019 13:06:55 copy to: Minna Arreaga letter sent: Biopsy Required Ultrasound BI-RADS: 4 Suspicious abnormality
== END ==
PROVIDERS: Family Provider Internal Medicine; PCP Family Medicine; Visit Provider Internal Medicine
DX: R92.8 Other abnormal and inconclusive findings on diagnostic imaging of breast (principal); N63.14 Unspecified lump in the right breast, lower inner quadrant; N60.01 Solitary cyst of right breast
CPT/HCPCS: 76642; 77065; G0279

== ENCOUNTER → 2019-02-02 14:07 | Outpatient (CLI) | payer OTHER, SELFPAY ==
[2018-07-19 22:35] VITALS: BMI 21.9
--- NOTE | 2019-02-02 | DI.US.S_ITS ---
ULTRASOUND GUIDED BIOPSY RIGHT BREAST USING VACUUM DEVICE WITH MARKING DEVICE INSERTED AND POST DIGITAL MAMMOGRAPHIC IMAGIN02/02/2019 CLINICAL: Right breast mass. PATIENT CONSENT: Risks (minor bleeding, infection, vasovagal reaction and repeat procedure), benefits and alternatives were explained to the patient and written informed consent was obtained. Correlation is made to exams dated: 02/02/2019 mammogram, 01/22/2019 ultrasound, 01/22/2019 mammogram, 12/27/2018 mammogram, and 12/22/2017 mammogram - [facility]. An ultrasound guided biopsy using real-time ultrasound was performed for the 0.6 cm x 0.2 cm x 1.6 cm irregular shaped mass located in the right breast at 5 o'clock anterior depth 4 cm from the nipple. The skin was prepped in the usual manner. Local anesthetic was administered to the access site. A skin sammy was made in the breast. The abnormality was approached from the lateral aspect. A 13 gauge biopsy needle was placed adjacent to the abnormality under ultrasound guidance. Once the needle was documented to be in the correct location, five specimens were obtained using the Mammotome biopsy system. The patient received additional local anesthetic during the procedure. A clip was inserted into the biopsy cavity. A sterile dressing was applied to the access site. Post procedure digital mammographic imaging demonstrates the location device at the targeted area. The specimens were sent to the laboratory for pathological analysis. IMPRESSION: ULTRASOUND GUIDED BIOPSY MALIGNANT Ultrasound guided biopsy of the 0.6 cm x 0.2 cm x 1.6 cm mass in the right breast at 5 o'clock anterior depth 4 cm from the nipple was successful. Final pathology results per pathologist Dr. Crystal Granados identified malignant ductal carcinoma in situ. Pathology results are concordant with imaging. Surgical and oncology consults are recommended for further evaluation and management. Should the other probable complicated cysts identified in the right breast on comparison right breast ultrasound of 01/22/19 not be included in potential areas of resection, a follow-up diagnostic ultrasound in 6 months is recommended. These results will be communicated to the patient's referring provider. This exam was interpreted at Station ID: [id number]. Mundo Silverman M.D. [facility] [place]/:02/07/2019 08:36:17 copy to: Minna Arreaga
--- NOTE | 2019-02-02 | PATH_ITS ---
[facility] Accession Number: [id number] . 01 Material submitted: . breast - RIGHT BREAST MASS . 01 Clinical history: . A: RIGHT BREAST MASS 5:00 4 CM FROM NIPPLE . 01 Diagnosis: A. Right Breast Mass, 5 o'clock, 4 cm From Nipple: Ductal carcinoma in situ (DCIS), with the following features: - Architectural pattern: Micropapillary, Arcades/Bridges. - Nuclear grade: Intermediate. - Necrosis: Present (single cell necrosis). - Amount of DCIS: Present on one core, largest dimension of 1 mm. - Calcifications: Present, in association with DCIS and background breast parenchyma. - Estrogen receptor status: Positive (99% of neoplastic cells, intensity: Strong). Negative for invasive malignancy. Background breast with florid usual ductal hyperplasia, apocrine cystic metaplasia, columnar cell change/columnar cell hyperplasia, and possible features of radial scar. MRV/02/06/2019 . 01 Electronically signed: . Crystal Granados MD, Pathologist NPI- [id number] . 01 Gross description: . Received in formalin, labeled US/US BX breast perc w vac device, are multiple fragments of bright yellow and adame-white fibrofatty tissue (2.0 x 1.0 x 0.2 cm in aggregate. entirely submitted in one cassette. Note: Approximate total fixation time in formalin-63 hours 30 minutes, calculated using a collection date of 02/02/2019 with no collection time given. ([id number]) /MRV . 01 Microscopic: . The biopsy consists of multiple cores which contain a spectrum of intraductal proliferations, ranging from columnar cell change/hyperplasia, florid usual ductal hyperplasia, to atypical intraductal proliferation. In one core, spanning approximately 1 mm, an atypical intraductal proliferation demonstrates an architecture of micropapillary and arcades and bridges lined by cells of mild to moderate variability in nuclear shape, size, and placement, with chromatin hyperchromasia and clumping, variably conspicuous nucleoli, and occasional mitotic figures. . CK 5/6 and estrogen receptor are performed on block A1 in order to assess the intraductal proliferative lesions. The external controls stain appropriately. Areas of usual ductal hyperplasia demonstrate mosaic staining pattern of estrogen receptor and CK 5/6 in support of the diagnosis of florid usual ductal hyperplasia. The area of atypical intraductal proliferation is diffusely and strongly positive for ER (but is lost on the tissue section for CK 5/6), which along with the morphologic impression, support the diagnosis of ductal carcinoma in situ (DCIS). . DCIS has the following immunoreactivity: Estrogen receptor status: Positive (99% tumor cells staining; staining intensity: strong; Internal controls: positive) . Cold ischemic time is <5 minutes. The scoring criteria for breast biomarkers by immunohistochemstry is based on the current ASCO/CAP guidelines (Evette AC et al J Clin Oncol 2018: 2017 10;36(20):1638-3417). Deparaffinized sections of formalin fixed tissue (along with appropriate positive controls) are incubated with the above antibody(s). Using the automated [place] stainer, tissue is incubated with the designated antibody which is then localized by a non-biotin, dual polymer detection system. The external controls are reviewed for appropriate reactivity and found to be adequate. Results on the target call population are indicated above. These tests have not been validated on decalcified tissue. * This test was developed and its performance characteristics determined by [facility]. It has not been cleared or approved by the U.S. Food and Drug Administration. The FDA has determined that such clearance or approval is not necessary. This test is used for clinical purposes. It should not be regarded as investigational or for research. . 01 Pathologist provided ICD-10: D05.11 . 01 CPT . 408929, [id number], [id number] Performed at: 01 [facility] [address] [place] [address] [address], [place], [place] [id number] MD Ramiro Lunsford MD Phone: [phone]
--- NOTE | 2019-02-02 | DI.MG.S_ITS ---
UNILATERAL RIGHT DIGITAL DIAGNOSTIC MAMMOGRAM POST-NEEDLE BIOPSY: 02/02/2019 CLINICAL: Right breast mass. Comparison is made to exams dated: 01/22/2019 ultrasound, 01/22/2019 mammogram, 12/27/2018 mammogram, and 02/02/2019 ultrasound biopsy - [facility]. The tissue of right breast is heterogeneously dense. This may lower the sensitivity of mammography. There is a marker clip in the appropriate position in the right breast at 5 o'clock middle depth. This marker clip placement is at the biopsy site. IMPRESSION: POST PROCEDURE MAMMOGRAM FOR MARKER PLACEMENT There was a successful marker clip placement in the right breast middle depth. This exam was interpreted at Station ID: [id number]. NOTE: For mammograms, a report in lay terms will be sent to the patient. Approximately 15% of breast malignancies will not be visualized mammographically. In the management of a palpable breast mass, a negative mammogram must not discourage biopsy of a clinically suspicious lesion. Electronically Signed By: Mundo hernandez/penalma:02/02/2019 16:43:16 copy to: Minna Arreaga ACR BI-RADS Category Post-procedure mammogram for marker placement
== END ==
PROVIDERS: Family Provider Internal Medicine; PCP Family Medicine; Visit Provider Internal Medicine
DX: D05.11 Intraductal carcinoma in situ of right breast (principal)
CPT/HCPCS: 19083; 77065

== ENCOUNTER 2019-06-14 09:57 | Emergency (ER) | payer MEDICARE, OTHER, SELFPAY ==
[2018-07-19 22:35] VITALS: BMI 21.9
[2019-06-14 10:20] VITALS: BP 146/64; PULSE 62; RESP 16; TEMP 37.2; O2SAT 100
--- NOTE | 2019-06-14 11:22 | ED.WOUNDLAC ---
HPI - Wound/Laceration <EV Chowdary - Last Filed: 06/14/19 11:36> General Chief Complaint: Extremity Injury, Upper Stated Complaint: left little finger cut Time Seen by Provider: 06/14/19 11:10 Source: patient Mode of arrival: Ambulatory Limitations: no limitations History of Present Illness HPI narrative: The patient is a 64-year-old female nonsmoker with history of breast cancer presents with a chief complaint of laceration to her left 5th digit. She states she was reaching into her drawer, cut her finger on an on covered knife. She states her last tetanus was in 2013. She wash it with alcohol soap and water at home. She states she is having a hard time getting the bleeding to stop, but states that bleeding has stopped upon my exam. She denies any weakness in the finger. Related Data Home Medications Medication Instructions Recorded Confirmed aspirin 81 mg PO QDAY #0 01/31/17 07/20/18 cholecalciferol (vitamin D3) 50 2,000 unit PO DAILY 02/07/18 07/20/18 mcg (2,000 unit) capsule medroxyprogesterone PO 07/31/18 07/31/18 Previous Rx's Medication Instructions Recorded acyclovir 200 mg capsule 200 mg PO DAILY PRN #60 cap 02/07/18 coenzyme Q10 100 mg capsule 100 mg PO DAILY #90 cap 02/07/18 estradiol 1 mg tablet 0.5 mg PO DAILY #15 tab 02/07/18 vit C,E,zinc,copper-lnved6z 250 1 cap PO DAILY #90 cap 02/07/18 mg-lutein 5 mg-zeaxanthin 1 mg capsule Allergies Allergy/AdvReac Type Severity Reaction Status Date / Time latex Allergy Mild SKIN Verified 07/31/18 11:55 IRRITATION erythromycin base AdvReac Mild GI UPSET Verified 07/31/18 11:55 Review of Systems <EV Chowdary - Last Filed: 06/14/19 11:36> Review of Systems Narrative: GENERAL: Denies chills, fatigue, malaise, fever, sweats. HEENT: Denies sinus pain, ear pain, sore throat, difficulty swallowing, dizziness. RESPIRATORY: Denies dyspnea, cough, wheezing, hemoptysis, sputum. CARDIOVASCULAR: Denies chest pain, palpitations, orthopnea, edema, GASTROINTESTINAL: Denies nausea, vomiting, abdominal pain, diarrhea, constipation, melena. : Denies dysuria, frequency, incontinence, hematuria, urinary retention. MUSCULOSKELETAL: See HPI SKIN: See HPI NEUROLOGIC: Denies weakness, headache, numbness, change in speech, confusion, seizures, incoordination. PSYCHIATRIC: No concerning psychosocial issues. 12 point review of systems is negative except for those stated above Patient History <EV Chowdary - Last Filed: 06/14/19 11:36> Medical History Abnormal Pap smear of cervix (Resolved) Chicken pox (Resolved) Colon polyps (Resolved 2014) Hemorrhoids (Resolved) History of vaginal delivery (Resolved) Hyperlipidemia (Chronic) Melanoma (Resolved 2013) Mumps (Resolved) Nodular infiltrative basal cell carcinoma (BCC) (Resolved 10/2012) Shoulder pain (Chronic ~2008) Varicose veins of left lower extremity (Resolved) Wart (Resolved 1973) Surgical History Anesthesia (Resolved) Dental root implant present (Resolved 2009) History of cryosurgery (Resolved 1999) History of surgery on extremity (Resolved ~2004) History of tonsillectomy (Resolved 1959) Status post colonoscopy (Resolved 03/2004) Status post colonoscopy (Resolved 05/2011) Status post colonoscopy (Resolved 09/2014) Family History Brother Age: 75 Diabetes mellitus High cholesterol Brother Age: 72 High cholesterol Brother Age: 62 High cholesterol Father Colon cancer High cholesterol AAA (abdominal aortic aneurysm) Mother Pneumonia Social History household members: spouse Smoking Status: Never smoker alcohol intake frequency: a few times a week Substance Use Type: does not use Exam <EV Chowdary - Last Filed: 06/14/19 11:36> Narrative Exam Narrative: GENERAL: This is a well-nourished, well-developed patient, in no acute distress HEAD: Atraumatic. Normocephalic. No temporal or scalp tenderness. EYES: Pupils equal round and reactive. Extraocular motions intact. No scleral icterus. No injection or drainage. ENT: Nose without bleeding, purulent drainage or septal hematoma. Throat without erythema, tonsillar hypertrophy or exudate. Uvula midline. Airway patent. NECK: Trachea midline. No JVD or lymphadenopathy. Supple, nontender, no meningeal signs. CARDIOVASCULAR: Regular rate and rhythm RESPIRATORY: No cough. No increased respiratory effort. No accessory muscle use. musk: Full range of motion noted left 5th digit. Capillary refill less than 2 seconds. Positive radial pulse left hand. BACK: Nontender without deformity or crepitance. No flank tenderness. NEURO: AOx3. SKIN: 0.5 cm well-approximated avulsion/laceration noted distal phalanx left 5th digit, lateral aspect. No active bleeding. Appears to be healing on exam. Initial Vital Signs Initial Vital Signs: Vital Signs Temperature 98.9 F 06/14/19 10:20 Pulse Rate 62 06/14/19 10:20 Respiratory Rate 16 06/14/19 10:20 Blood Pressure 146/64 H 06/14/19 10:20 Pulse Oximetry 100 06/14/19 10:20 <Orquidea Sanders MD - Last Filed: 06/14/19 13:06> Initial Vital Signs Initial Vital Signs: Vital Signs Temperature 98.9 F 06/14/19 10:20 Pulse Rate 62 06/14/19 10:20 Respiratory Rate 16 06/14/19 10:20 Blood Pressure 146/64 H 06/14/19 10:20 Pulse Oximetry 100 06/14/19 10:20 Procedures <EV Chowdary - Last Filed: 06/14/19 11:36> Laceration Repair Laceration 1: Site: hand Side (If applicable): left Size (cm): 0.5 Description: flap Depth: simple, single layer Pre-repair: wound explored, irrigated extensively (Cleansed with Hibiclens) and deep structures intact Skin layer closed with: steri-strips Course <EV Chowdary - Last Filed: 06/14/19 11:36> Vital Signs Vital signs: Vital Signs - 8 hr 06/14/19 10:20 06/14/19 11:53 Temperature 98.9 F Pulse Rate 62 82 Respiratory Rate 16 16 Blood Pressure 146/64 H Blood Pressure [Left Arm] 134/86 Pulse Oximetry 100 100 <Orquidea Sanders MD - Last Filed: 06/14/19 13:06> Vital Signs Vital signs: Vital Signs - 8 hr 06/14/19 10:20 06/14/19 11:53 Temperature 98.9 F Pulse Rate 62 82 Respiratory Rate 16 16 Blood Pressure 146/64 H Blood Pressure [Left Arm] 134/86 Pulse Oximetry 100 100 MDM - Wound/Laceration <MELISA Chowdary- - Last Filed: 06/14/19 11:36> MDM Narrative Medical decision making narrative: The patient is a 64-year-old female who presents with a chief complaint of laceration on the lateral aspect of her left 5th digit. Her wound is not bleeding on my exam, appears to have already started healing. Her tetanus is up-to-date. She was dressed with Steri-Strips. Discussed at length monitoring for signs and symptoms of infection such as redness pus etc. Encourage coming back to the emergency department any acute concerns and follow up with primary care provider. She is neurovascularly intact throughout her stay in the emergency department. No questions or concerns upon discharge the patient states understanding of return precautions as well as follow-up care. Discharge Plan Departure Patient Disposition: Home Clinical Impression: Laceration Discharge Date/Time: 06/14/19 11:55 Instructions: DI for Laceration Repair, DI for Laceration Repair Steri-Strips Activity Restrictions/Additional Instructions: Please watch for signs and symptoms of infection such as redness swelling and fever Please keep your cut clean and dry, do not submerge it into dirty water as this will increase your chance of infection Please come back to the emergency department for any acute concerns and follow up with primary care provider Prescriptions: No Action aspirin 81 MG tablet,delayed release (DR/EC) 81 mg PO QDAY Qty: 0 RF: 0 coenzyme Q10 [Co Q-10] 100 mg capsule 100 mg PO DAILY Qty: 90 RF: 0 cholecalciferol (vitamin D3) 2,000 unit capsule 2,000 unit PO DAILY RF: 0 C,E,zinc,copper [id number] [Ocuvite Adult 50 Plus] 250-5-1 mg capsule 1 cap PO DAILY Qty: 90 RF: 0 estradiol [Estrace] 1 mg tablet 0.5 mg PO DAILY Qty: 15 RF: 11 acyclovir [Zovirax] 200 mg capsule 200 mg PO DAILY PRN (Reason: cold sores) Qty: 60 RF: 6 medroxyprogesterone PO RF: 0 Referrals: Minna Arreaga MD [Primary Care Provider] -
[2019-06-14 11:53] VITALS: BP 134/86; PULSE 82; RESP 16; O2SAT 100
== END 2019-06-14 11:55 | disposition home or self-care (01) ==
PROVIDERS: Emergency Provider Nurse Practitioner Family; Family Provider Internal Medicine; PCP Family Medicine
DX: S61.217A Laceration without foreign body of left little finger without damage to nail, initial encounter (principal); W26.0XXA Contact with knife, initial encounter
CPT/HCPCS: 99282

== ENCOUNTER → 2019-12-31 13:10 | Outpatient (CLI) | payer OTHER, SELFPAY ==
[2018-07-19 22:35] VITALS: BMI 21.9
--- NOTE | 2019-12-31 | DI.MG.S_ITS ---
BILATERAL DIGITAL DIAGNOSTIC MAMMOGRAM 3D/2D SHORT-TERM FOLLOW-UP POST LUMPECTOMY: 12/31/2019 CLINICAL: Patient returns for 6 month follow up of right breast, due for bilateral exam. Comparison is made to exams dated: 12/27/2018 mammogram, 12/09/2017 mammogram, and 11/25/2016 mammogram - [facility]. The tissue of both breasts is heterogeneously dense. This may lower the sensitivity of mammography. The right breast has post-operative findings. There is a 1.2 cm area of grouped pleomorphic calcifications in the left breast at 1 o'clock posterior depth. They appear more prominent and increased in number. No other significant masses, calcifications, or other findings are seen in either breast. IMPRESSION: SUSPICIOUS OF MALIGNANCY The 1.2 cm grouping of pleomorphic calcifications in the left breast are suspicious of malignancy. A stereotactic biopsy is recommended. Findings and biopsy recommendations were discussed with the patient by Dr. Jaramillo during today's visit. This exam was interpreted at Station ID: [id number]. NOTE: For mammograms, a report in lay terms will be sent to the patient. Approximately 15% of breast malignancies will not be visualized mammographically. In the management of a palpable breast mass, a negative mammogram must not discourage biopsy of a clinically suspicious lesion. Electronically Signed By: Demetrius Fleming M.D. aty/:12/31/2019 14:11:44 copy to: JESIKA BLACK letter sent: Biopsy Required ACR BI-RADS Category 4: Suspicious abnormality 3344F
== END ==
PROVIDERS: Family Provider Internal Medicine; PCP Internal Medicine; Referring Provider Internal Medicine; Visit Provider Internal Medicine
DX: R92.8 Other abnormal and inconclusive findings on diagnostic imaging of breast (principal); R92.1 Mammographic calcification found on diagnostic imaging of breast
CPT/HCPCS: 76642; 77066; G0279

== ENCOUNTER → 2020-03-03 14:44 | Outpatient (CLI) | payer OTHER, SELFPAY ==
[2018-07-19 22:35] VITALS: BMI 21.9
== END ==
PROVIDERS: Family Provider Internal Medicine; PCP Internal Medicine; Referring Provider Internal Medicine; Visit Provider Internal Medicine
DX: M85.852 Other specified disorders of bone density and structure, left thigh (principal); Z78.0 Asymptomatic menopausal state; Z85.3 Personal history of malignant neoplasm of breast; Z82.62 Family history of osteoporosis
CPT/HCPCS: 77080

== ENCOUNTER → 2020-05-13 10:15 | Outpatient (CLI) | payer OTHER, SELFPAY ==
[2018-07-19 22:35] VITALS: BMI 21.9
[2020-05-14 06:47] LABS: COVID19 Sendout Not Detected (Not Detect)
== END ==
PROVIDERS: Family Provider Internal Medicine; PCP Internal Medicine; Visit Provider Nurse Practitioner
DX: Z11.59 Encounter for screening for other viral diseases (principal)
CPT/HCPCS: 87635

== ENCOUNTER 2020-05-16 13:36 | Day surgery (SDC) | payer OTHER, SELFPAY ==
[2018-07-19 22:35] VITALS: BMI 21.9
--- NOTE | 2020-05-16 | PATH_ITS ---
[facility] Accession Number: [id number] . 01 Material submitted: . sigmoid colon - SIGMOID COLON POLYP 3MM . 02 Diagnosis: Sigmoid Colon, Polyp 3 mm, Biopsy: Tubular adenoma. MRV 05/20/2020 1051 Local . 02 Electronically signed: . Ana Laura Wilson MD, Pathologist NPI- [id number] . 01 Gross description: . The specimen is received in formalin, labeled sigmoid colon polyp, and consists of two gutierrez-pink fragments of soft tissue measuring 0.6 x 0.5 x 0.2 cm in aggregate. The specimen is entirely submitted in cassette A1. ([id number]) /FRR 05/17/2020 1715 Local . 02 Pathologist provided ICD-10: D12.5 . 02 CPT . 929949 Performed at: 01 [facility] [address] [facility], [place], [place] [id number] MD Ramiro Lunsford MD Phone: [phone] Performed at: 02 [facility] [address] [place], [place] [id number] MD Ana Laura Wilson MD Phone: [phone]
--- NOTE | 2020-05-16 11:58 | PM.HP.1 ---
History of Present Illness History of Present Illness Date Patient Seen: 05/16/20 Chief complaint: SDC Narrative: 65 year old female comes in today for consideration of a screening colonoscopy. Has had 3 lifetime colonoscopies, most recently approximately 5 years ago. Reports history of colon polyps, records unavailable at time of dictation. She does have a family history of colon cancer in her father. FIT negative on 12/01/2018. There have been no lower GI symptoms suggesting disease such as change in bowel habits, bleeding, abdominal pain or anemia. Overall health issues have been stable, including no major cardiac events for at least 6 weeks. 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 Lives with partner Gerard. Patient History Medical History (Updated 06/29/19 @ 00:00 by ) Abnormal Pap smear of cervix (Resolved) Chicken pox (Resolved) Colon polyps (Resolved 2014) Hemorrhoids (Resolved) History of vaginal delivery (Resolved) Hyperlipidemia (Chronic) Melanoma (Resolved 2013) Mumps (Resolved) Nodular infiltrative basal cell carcinoma (BCC) (Resolved 10/2012) Shoulder pain (Chronic ~2008) Varicose veins of left lower extremity (Resolved) Wart (Resolved 1973) Surgical History Anesthesia (Resolved) Dental root implant present (Resolved 2009) History of cryosurgery (Resolved 1999) History of surgery on extremity (Resolved ~2004) History of tonsillectomy (Resolved 1959) Status post colonoscopy (Resolved 03/2004) Status post colonoscopy (Resolved 05/2011) Status post colonoscopy (Resolved 09/2014) Family & Social History Family History Brother Age: 76 Diabetes mellitus High cholesterol Brother Age: 73 High cholesterol Brother Age: 63 High cholesterol Father Colon cancer High cholesterol AAA (abdominal aortic aneurysm) Mother Pneumonia Social History: household members spouse Tobacco & Substance use: Smoking Status Never smoker alcohol intake frequency a few times a week Substance Use Type does not use Meds Home Medications and Allergies Home Medications Medication Instructions Recorded Confirmed Type cholecalciferol (vitamin D3) 50 2,000 unit PO DAILY 02/07/18 05/16/20 History mcg (2,000 unit) capsule coenzyme Q10 100 mg capsule 100 mg PO DAILY #90 cap 02/07/18 05/16/20 Rx vit C,E,zinc,copper-dcqye1m 250 1 cap PO DAILY #90 cap 02/07/18 05/16/20 Rx mg-lutein 5 mg-zeaxanthin 1 mg capsule acyclovir 200 mg capsule 200 mg PO DAILY PRN #60 cap 07/30/19 05/16/20 Rx donepezil 5 mg PO DAILY 05/16/20 05/16/20 History memantine 1 mg PO DAILY 05/16/20 05/16/20 History simvastatin 10 mg PO DAILY 05/16/20 05/16/20 History tamoxifen 1 mg PO DAILY 05/16/20 05/16/20 History venlafaxine 37.5 mg PO DAILY 05/16/20 05/16/20 History Allergies Allergy/AdvReac Type Severity Reaction Status Date / Time latex Allergy Mild SKIN Verified 05/16/20 13:52 IRRITATION erythromycin base AdvReac Mild GI UPSET Verified 05/16/20 13:52 Review of Systems Review of Systems ROS: Yes All systems reviewed with the patient and are negative except as otherwise documented Exam Narrative Exam Narrative: GENERAL: Alert and oriented, appearing stated age and in no acute distress. HEENT: Head normocephalic/atraumatic. Pupils equal, round, and reactive to light and accomodation. Extraocular muscles intact. Tympanic membranes clear. Nasal mucosa moist, septum midline. Oral mucosa moist, no lesions. Neck soft and supple, no lymphadenopathy. LUNGS: Clear to ausculation bilaterally, no wheezes, rhonchi or rales. CV: Normal S1 and S2 with regular rate and rhythm, no audible murmurs, rubs or gallops. ABDOMEN: Soft, non-tender, non-distended, no organomegaly. Positive bowel sounds. EXTREMITIES: No clubbing, cyanosis, or edema. NEURO: Cranial nerves II through XII grossly intact, no focal deficits. PSYCH: Alert and oriented x 3. SKIN: No concerning lesions. Assessment & Plan Assessment & Plan narrative: 1. History of colon polyps 2. Family history of colon cancer, father 3. Screening for colon cancer Plan for colonoscopy. The nature and character of the procedure as well as anticipated results were discussed. The possibility of not completing the procedure was also discussed. Possible complications including aspiration pneumonia, bleeding, perforation and reaction to medications either for sedation or preparation and missed lesions were discussed. Questions were answered and proceeding to the colonoscopy was elected. Informed consent signed. I sincerely appreciate the referral allowing me to participate in this patient's care. Please contact me with any questions or concerns.
--- NOTE | 2020-05-16 12:03 | P.OP.ENDO_ITS ---
Operative Date/Time/Diagnoses Date of procedure: 05/16/20 Procedure Notes SCOAP/Timeout: 2:32 p.m. Procedure in detail: ENDOSCOPIST: Zuleyma Bustos MD Sedation RN: Mimi David RN Sedation start time: 2:33 p.m. Sedation end time: 2:58 p.m. PROCEDURE: Colonoscopy INDICATIONS: 1. History of colon polyps 2. Family history of colon cancer 3. Screening for colon cancer MEDICATION: Levsin 0.125 mg sublingual, incremental doses of Versed and fen tanyl until appropriate level sedation achieved. ASA CLASS: 2 CECAL WITHDRAWAL TIME: 9 minutes COMPLICATIONS: None. EXTENT OF PROCEDURE: Cecum. QUALITY OF PREP: Good with portions of liquid stool. PROCEDURE: Prior to insertion of the colonoscope, a digital rectal examination was accomplished with circumferential palpation of the distal rectal mucosa without significant findings being noted. The high-definition pediatric colonoscope was passed into the rectum in the usual fashion and advanced over to the cecum without difficulty. The ileocecal valve, appendiceal stoma, and medial wall all could be inspected and no abnormalities were seen. ASCENDING COLON: As the colonoscope was withdrawn, care was taken to expose and inspect the haustral folds and no abnormalities were seen. HEPATIC FLEXURE: Normal, no polyps, diverticula or other abnormalities. TRANSVERSE COLON: Normal, no polyps, diverticula or other abnormalities. DESCENDING COLON: Normal, no polyps, diverticula or other abnormalities. SIGMOID COLON: 3 mm polyp removed with cold biopsy forceps. Otherwise, no polyps, diverticula or other abnormalities. RECTUM: Normal. J maneuver was produced. There was no significant perianal disease. The J maneuver was broken. The remainder of the rectum was inspected and there was [] no external hemorrhoid disease. The scope was withdrawn. IMPRESSION: 1. Sigmoid polyp x1, 3 mm, removed with biopsy forceps PLAN: 1. Follow-up in clinic status post pathology results. The possibility of a missed lesion including a malignancy has been discussed with the patient previously. Potential alarm symptoms have been discussed and should be reported immediately.
[2020-05-16 14:02] VITALS: BP 119/75; PULSE 79; RESP 12; TEMP 37.1; O2SAT 100; BMI 21.4
[2020-05-16] MEDS: LACTATED RINGERS 1,000 ML 200 ML IV (14:15)
--- NOTE | 2020-05-16 14:22 | SUR.PREOP ---
Pt states that when finishing prep this am, her leg muscles seized up and wouldn't work. pt states she had leg pain. this reaction has since disappated. Dr Bustos notified.
[2020-05-16] MEDS: HYOSCYAMINE 0.125 MG TABLET PO (14:25)
[2020-05-16] MEDS: MIDAZOLAM 5 MG/5 ML VIAL IV (14:30)
[2020-05-16] MEDS: fentaNYL 250 MCG/5 ML INJ IV (14:31)
[2020-05-16 15:05] VITALS: BP 89/52; PULSE 70; RESP 14; TEMP 36.8; O2SAT 98
[2020-05-16 15:10] VITALS: BP 92/52; PULSE 69; RESP 13; O2SAT 98
[2020-05-16 15:17] VITALS: BP 99/53; PULSE 70; RESP 19; O2SAT 99
[2020-05-16 15:21] VITALS: BP 102/51; PULSE 70; RESP 18; O2SAT 96
[2020-05-16 15:33] VITALS: BP 96/53; PULSE 73; RESP 18; TEMP 36.8; O2SAT 98
== END 2020-05-16 15:57 | disposition home or self-care (01) ==
PROVIDERS: Family Provider Internal Medicine; PCP Internal Medicine; Referring Provider Student in an Organized Health Care Education/Training Program; Visit Provider Student in an Organized Health Care Education/Training Program
PROC: 0DJD8ZZ Inspection of Lower Intestinal Tract, Via Natural or Artificial Opening Endoscopic (ICD-10-PCS; CPT 45378; principal; 2020-05-16 14:30)
DX: Z12.11 Encounter for screening for malignant neoplasm of colon (principal); Z86.010 Personal history of colon polyps; Z80.0 Family history of malignant neoplasm of digestive organs; E78.5 Hyperlipidemia, unspecified; G30.0 Alzheimer's disease with early onset; F02.80 Dementia in other diseases classified elsewhere, unspecified severity, without behavioral disturbance, psychotic disturbance, mood disturbance, and anxiety; F41.9 Anxiety disorder, unspecified; D12.5 Benign neoplasm of sigmoid colon
CPT/HCPCS: 45380; J2250; J3010

== ENCOUNTER → 2020-08-13 10:40 | Outpatient (CLI) | payer MEDICARE, SELFPAY ==
[2018-07-19 22:35] VITALS: BMI 21.9
[2020-08-13] MEDS: COVID-19 VACC #1, MRNA(MOD) 100 MCG/0.5 ML VIAL IM (10:44)
== END ==
PROVIDERS: Family Provider Internal Medicine; PCP Internal Medicine; Visit Provider Internal Medicine
DX: Z23 Encounter for immunization (principal)
CPT/HCPCS: 0011A; 91301

== ENCOUNTER → 2020-09-10 10:41 | Outpatient (CLI) | payer MEDICARE, SELFPAY ==
[2018-07-19 22:35] VITALS: BMI 21.9
[2020-09-10] MEDS: COVID-19 VACC #2, MRNA(MOD) 100 MCG/0.5 ML VIAL IM (10:48)
== END ==
PROVIDERS: Family Provider Internal Medicine; PCP Internal Medicine; Visit Provider Internal Medicine
DX: Z23 Encounter for immunization (principal)
CPT/HCPCS: 0012A; 91301

== ENCOUNTER → 2020-12-31 08:29 | Outpatient (CLI) | payer OTHER, SELFPAY ==
[2018-07-19 22:35] VITALS: BMI 21.9
--- NOTE | 2020-12-31 | DI.MG.S_ITS ---
BILATERAL DIGITAL SCREENING MAMMOGRAM 3D/2D WITH CAD: 12/31/2020 CLINICAL: Routine screening. Breast cancer. Family history of breast cancer. Comparison is made to exams dated: 12/31/2019 mammogram, 02/02/2019 mammogram, 01/22/2019 mammogram, 12/27/2018 mammogram, 12/22/2017 mammogram, and 12/09/2017 mammogram - [facility]. The tissue of both breasts is heterogeneously dense. This may lower the sensitivity of mammography. Current study was also evaluated with a Computer Aided Detection (CAD) system. There are benign post operative findings in the right breast. There also is a biopsy clip in the left breast. There is a mole marker on both breasts. No significant masses, calcifications, or other findings are seen in either breast. There has been no significant interval change. IMPRESSION: BENIGN There is no mammographic evidence of malignancy. A 1 year screening mammogram is recommended. This exam was interpreted at Station ID: [id number]. NOTE: For mammograms, a report in lay terms will be sent to the patient. Approximately 15% of breast malignancies will not be visualized mammographically. In the management of a palpable breast mass, a negative mammogram must not discourage biopsy of a clinically suspicious lesion. Electronically Signed By: Francisco Javier Good acr/penrad:12/31/2020 10:43:14 letter sent: Normal Exam ACR BI-RADS Category 2: Benign Finding(s) 3342F
== END ==
PROVIDERS: Family Provider Internal Medicine; PCP Internal Medicine; Referring Provider Internal Medicine; Visit Provider Internal Medicine
DX: Z12.31 Encounter for screening mammogram for malignant neoplasm of breast (principal); Z85.3 Personal history of malignant neoplasm of breast; Z80.3 Family history of malignant neoplasm of breast
CPT/HCPCS: 77063; 77067

== ENCOUNTER → 2022-02-05 08:12 | Outpatient (CLI) | payer OTHER, SELFPAY ==
[2018-07-19 22:35] VITALS: BMI 21.9
--- NOTE | 2022-02-05 | DI.MG.S_ITS ---
BILATERAL DIGITAL SCREENING MAMMOGRAM 3D/2D WITH CAD: 02/05/2022 CLINICAL: Routine screening. Personal history of right breast cancer. Family history of breast cancer. Comparison is made to exams dated: 12/31/2020 mammogram, 12/31/2019 mammogram, and 12/27/2018 mammogram - [facility]. The tissue of both breasts is heterogeneously dense. This may lower the sensitivity of mammography. Current study was also evaluated with a Computer Aided Detection (CAD) system. There are benign post operative findings in the right breast. There also is a biopsy clip in the left breast. There is a mole marker on both breasts. No significant masses, calcifications, or other findings are seen in either breast. There has been no significant interval change. IMPRESSION: BENIGN There is no mammographic evidence of malignancy. A 1 year screening mammogram is recommended. This exam was interpreted at Station ID: [id number]. NOTE: For mammograms, a report in lay terms will be sent to the patient. Approximately 15% of breast malignancies will not be visualized mammographically. In the management of a palpable breast mass, a negative mammogram must not discourage biopsy of a clinically suspicious lesion. Electronically Signed By: Fabi castillo/fredreick:02/05/2022 14:54:20 letter sent: Normal Exam ACR BI-RADS Category 2: Benign Finding(s) 3342F
== END ==
PROVIDERS: Family Provider Internal Medicine; PCP Internal Medicine; Referring Provider Internal Medicine; Visit Provider Internal Medicine
DX: Z12.31 Encounter for screening mammogram for malignant neoplasm of breast (principal); Z85.3 Personal history of malignant neoplasm of breast; Z80.3 Family history of malignant neoplasm of breast
CPT/HCPCS: 77063; 77067

== ENCOUNTER → 2022-03-18 14:50 | Outpatient (CLI) | payer OTHER, SELFPAY ==
[2018-07-19 22:35] VITALS: BMI 21.9
== END ==
PROVIDERS: Family Provider Internal Medicine; PCP Internal Medicine; Referring Provider Internal Medicine; Visit Provider Internal Medicine
DX: Z78.0 Asymptomatic menopausal state (principal); M85.852 Other specified disorders of bone density and structure, left thigh
CPT/HCPCS: 77080

== ENCOUNTER → 2023-01-25 11:22 | Outpatient (CLI) | payer OTHER, SELFPAY ==
[2018-07-19 22:35] VITALS: BMI 21.9
[2023-01-25 12:02] LABS: Add Manual Diff / Slide Review NO; Basophils Absolute Auto 0 /uL (0-100); Basophils Percent Auto 0.7 % (0-2); Eosinophils Absolute Auto 100 /uL (0-450); Eosinophils Percent Auto 1.9 % (2-4); Hemoglobin 13.1 g/dL (12.0-16.0); Lymphocytes Absolute Auto 1900 /uL (1100-4500); Lymphocytes Percent Auto 37.9 % (25-40); Mean Corpuscular HGB Conc 33.5 % (30-36); Mean Corpuscular Hemoglobin 31.1 PG (26-34); Mean Corpuscular Volume 92.6 fL (80-100); Monocytes Absolute Auto 500 /uL (0-900); Neutrophils Absolute Auto 2500 /uL (1500-7000); Neutrophils Percent Auto 50.5 % (50-75); Platelet Count 345 X10^3/uL (150-400); Red Blood Cell Count 4.21 X10^6/uL (4.0-5.2); Red Cell Distribution Width 12.6 % (11.6-14.8)
[2023-01-25 12:25] LABS: Alanine Aminotransferase 22 IU/L (<35); Albumin 4.1 g/dL (3.5-5.0); Albumin Globulin Ratio 1.5 (1.0-2.8); Alkaline Phosphatase 76 U/L (38-126); Aspartate Aminotransferase 27 IU/L (14-36); BUN Creatinine Ratio 18.2 (6-22); Bilirubin Total 0.3 mg/dL (0.2-1.3); Blood Urea Nitrogen 12 mg/dL (7-17); Calcium 9.4 mg/dL (8.4-10.2); Carbon Dioxide 29 mmol/L (22-32); Chloride 102 mmol/L (98-107); Estimated Glomerular Filt Rate > 60 mL/min (>60); Globulin 2.8 g/dL (1.7-4.1); Glucose 71 mg/dL (80-110); HEMOLYSIS < 15 (0-50); Potassium 4.3 mmol/L (3.4-5.1); Sodium 139 mmol/L (137-145); Total Protein 6.9 g/dL (6.3-8.2)
[2023-01-25 12:58] LABS: TSH w/ Reflex to FT4 2.87 uIU/mL (0.47-4.68)
[2023-01-25 13:13] LABS: Vitamin B12 945 pg/mL (239-931)
== END ==
PROVIDERS: Family Provider Internal Medicine; PCP Internal Medicine; Referring Provider Nurse Practitioner Family; Visit Provider Nurse Practitioner Family
DX: G30.9 Alzheimer's disease, unspecified (principal)
CPT/HCPCS: 36415; 80053; 82607; 84443; 85025

== ENCOUNTER → 2023-02-21 15:04 | Outpatient (CLI) | payer OTHER, SELFPAY ==
[2018-07-19 22:35] VITALS: BMI 21.9
--- NOTE | 2023-02-21 | DI.MG.S_ITS ---
BILATERAL DIGITAL SCREENING MAMMOGRAM 3D/2D WITH CAD POST LUMPECTOMY: 02/21/2023 CLINICAL: Routine screening. Personal history of right breast cancer. Comparison is made to exams dated: 02/05/2022 mammogram, 12/31/2020 mammogram, 12/31/2019 mammogram, and 11/19/2016 mammogram - [facility]. Both breasts are heterogeneously dense, which may obscure small masses (category c / 51-75% glandular tissue). Current study was also evaluated with a Computer Aided Detection (CAD) system. There are benign post operative findings in the right breast. There also is a biopsy clip in the left breast. No significant masses, calcifications, or other findings are seen in either breast. There has been no significant interval change. IMPRESSION: BENIGN There is no mammographic evidence of malignancy. A 1 year screening mammogram is recommended. This exam was interpreted at Station ID: [id number]. NOTE: For mammograms, a report in lay terms will be sent to the patient. Approximately 15% of breast malignancies will not be visualized mammographically. In the management of a palpable breast mass, a negative mammogram must not discourage biopsy of a clinically suspicious lesion. Electronically Signed By: Mundo hernandez/frederick:02/22/2023 20:24:07 letter sent: Normal Exam ACR BI-RADS Category 2: Benign Finding(s) 3342F
== END ==
PROVIDERS: Family Provider Internal Medicine; PCP Internal Medicine; Referring Provider Internal Medicine; Visit Provider Internal Medicine
DX: Z12.31 Encounter for screening mammogram for malignant neoplasm of breast (principal); Z85.3 Personal history of malignant neoplasm of breast
CPT/HCPCS: 77063; 77067

== ENCOUNTER → 2023-07-14 15:13 | Outpatient (CLI) | payer OTHER, SELFPAY ==
[2018-07-19 22:35] VITALS: BMI 21.9
--- NOTE | 2023-07-14 | DI.RAD.S_ITS ---
PROCEDURE: XR HUMERUS RT 2V INDICATIONS: Louise Beatty TECHNIQUE: 2 views of the humerus were acquired. COMPARISON: None. FINDINGS: Bones: No fractures or dislocations. No suspicious bony lesions. Mild to moderate acromioclavicular joint osteoarthrosis. Soft tissues: No suspicious soft tissue calcifications. Surgical clips are seen in the right upper abdomen. IMPRESSION: No acute osseous abnormality. If the symptoms persist, consider cross sectional imaging such as MRI or CT for further assessment. Approved by: Clyde Peace M.D. on 07/14/2023 at 20:31
== END ==
PROVIDERS: Family Provider Internal Medicine; PCP Internal Medicine; Referring Provider Internal Medicine; Visit Provider Internal Medicine
DX: M19.011 Primary osteoarthritis, right shoulder (principal); M79.601 Pain in right arm
CPT/HCPCS: 73060

== ENCOUNTER → 2024-03-26 09:06 | Outpatient (CLI) | payer OTHER, SELFPAY ==
[2018-07-19 22:35] VITALS: BMI 21.9
--- NOTE | 2024-03-26 | DI.RAD.S_ITS ---
PROCEDURE: XR DEXA AXIAL SKELETON INDICATIONS: Asymptomatic menopausal state COMPARISON: [facility], CR, XR DEXA AXIAL SKELETON, 03/18/2022, 15:17. FINDINGS: Lumbar Spine: Bone mineral density 1.062 g/cm2, T score -0.2, compared to 0.5. Left Hip: Bone mineral density 0.792 g/cm2, T score -1.2, compared to -0.8. Left Femoral Neck: Bone mineral density 0.657 g/cm2, T score -1.7, compared to -1.5 Right Hip: Bone mineral density 0.816 g/cm2, T score -1.0, compared to -0.2. Right Femoral Neck: Bone mineral density 0.7 to a g/cm2, T score -1.1, compared to -0.7 Fracture Risk Calculation (when applicable): 10-year fracture risk of a major osteoporotic fracture 4.6% and of a hip fracture 0.5% without prior fracture in 7.5% 0.8% with prior fracture. This is compared to 7.4% and 0.5% previously for major osteoporotic and hip fractures respectively.. (T score greater or equal to -1.0 to: NORMAL) (T score from -1.1 to -2.4: OSTEOPENIA) (T score less than or equal to -2.5: OSTEOPOROSIS) IMPRESSION: Progressive bone mineral density loss with moderate osteopenia. Follow-up guidelines as follows: Osteoporosis: Consider a repeat DEXA and Vertebral Fracture Assessment (VFA) exam in 2 years or sooner if medically necessary, to reassess this patient's status. Osteopenia: Consider a repeat DEXA in 2-3 years to reassess this patient's status, or if there is a new clinical indication. Normal: Consider a repeat DEXA in 5 years or sooner, or if there is a new clinical indication. All treatment decisions require clinical judgment and consideration of individual patient factors, including patient preferences, comorbidities, previous drug use, risk factors not captured in the FRAX model (e.g., frailty, falls, vitamin D deficiency, increased bone turnover, interval significant decline in bone density ) and possible under- or over-estimation of fracture risk by FRAX. In addition, the NOF Guide recommends that FDA-approved medical therapies be considered in postmenopausal women and men age >= 50 years with a: * Hip or vertebral (clinical or morphometric) fracture * T-score of <=-2.5 at the spine or hip * Ten-year fracture probability by FRAX of >= 3% for hip fracture or >=20% for major osteoporotic fracture. People with diagnosed cases of osteoporosis or at high risk for fracture should have regular bone mineral density tests. For patients eligible for Medicare, routine testing is allowed once every 2 years. The testing frequency can be increased to one year for patients who have rapidly progressing disease, those who are receiving or discontinuing medical therapy to restore bone mass, or have additional risk factors. Dictated by: Raissa Herrera M.D. on 03/26/2024 at 21:34 Approved by: Raissa Herrera M.D. on 03/26/2024 at 21:36
--- NOTE | 2024-03-26 | DI.MG.S_ITS ---
BILATERAL DIGITAL SCREENING MAMMOGRAM 3D/2D WITH CAD POST LUMPECTOMY: 03/26/2024 CLINICAL: Routine screening. Personal history of right breast cancer. Family history of Breast Cancer. Comparison is made to exams dated: 02/21/2023 mammogram, 02/05/2022 mammogram, and 12/31/2020 mammogram - [facility]. Both breasts are heterogeneously dense, which may obscure small masses (category c / 51-75% glandular tissue). Current study was also evaluated with a Computer Aided Detection (CAD) system. There are benign calcifications in the left breast. There also are benign post operative findings in the right breast. Additionally, there is a biopsy clip in the left breast. No significant masses, calcifications, or other findings are seen in either breast. There has been no significant interval change. IMPRESSION: BENIGN There is no mammographic evidence of malignancy. A 1 year screening mammogram is recommended. This exam was interpreted at Station ID: [id number]. NOTE: For mammograms, a report in lay terms will be sent to the patient. Approximately 15% of breast malignancies will not be visualized mammographically. In the management of a palpable breast mass, a negative mammogram must not discourage biopsy of a clinically suspicious lesion. Electronically Signed By: Demetrius us/frederick:03/26/2024 17:55:41 letter sent: Normal Exam ACR BI-RADS Category 2: Benign Finding(s) 3342F
== END ==
LOC: MAMMO 09:08
PROVIDERS: Family Provider Internal Medicine; PCP Internal Medicine; Referring Provider Internal Medicine; Visit Provider Internal Medicine
DX: Z12.31 Encounter for screening mammogram for malignant neoplasm of breast (principal); M85.89 Other specified disorders of bone density and structure, multiple sites; Z85.3 Personal history of malignant neoplasm of breast; Z80.3 Family history of malignant neoplasm of breast; R92.333 Mammographic heterogeneous density, bilateral breasts; Z78.0 Asymptomatic menopausal state
CPT/HCPCS: 77063; 77067; 77080

== ENCOUNTER 2024-10-01 07:25 | Day surgery (SDC) | payer OTHER, SELFPAY ==
[2018-07-19 22:35] VITALS: BMI 21.9
[2024-10-01 07:49] VITALS: BP 133/87; PULSE 77; RESP 16; TEMP 36.3; O2SAT 100
--- NOTE | 2024-10-01 08:29 | PM.HP.IH.1 ---
History of Present Illness History of Present Illness Date Patient Seen: 10/01/24 Chief complaint: SDC Narrative: Ten year screening colonoscopy PENDING SALE TO [facility] Medical History (Updated 05/20/22 @ 15:07 by Meka Yarbrough MD) Shoulder pain (~2008) Nodular infiltrative basal cell carcinoma (BCC) (10/2012) Wart (1973) Melanoma (2013) Varicose veins of left lower extremity Colon polyps (2014) Hemorrhoids Abnormal Pap smear of cervix Chicken pox Mumps Hyperlipidemia History of vaginal delivery Surgical History (Updated 05/20/22 @ 14:43 by Meka Yarbrough MD) History of cryosurgery (1999) Anesthesia History of surgery on extremity (~2004) Dental root implant present (2009) Status post colonoscopy (09/2014) Status post colonoscopy (05/2011) Status post colonoscopy (03/2004) History of tonsillectomy (1959) Family History Brother Age: 80 Diabetes mellitus High cholesterol Brother Age: 77 High cholesterol Brother Age: 67 High cholesterol Father Colon cancer High cholesterol AAA (abdominal aortic aneurysm) Mother Pneumonia Social History household members: spouse Smoking Status: Never smoker alcohol intake: current Meds Home Medications and Allergies Home Medications Medication Instructions Recorded Confirmed Type cholecalciferol (vitamin D3) 50 2,000 unit PO DAILY 02/07/18 05/20/22 History mcg (2,000 unit) capsule coenzyme Q10 100 mg capsule (Co 100 mg PO DAILY #90 caps 02/07/18 05/20/22 Rx Q-10) vit C,E,zinc,copper-fcibk4o 250 1 cap PO DAILY #90 caps 02/07/18 05/20/22 Rx mg-lutein 5 mg-zeaxanthin 1 mg capsule (Ocuvite Adult 50 Plus) memantine 5 mg tablet 1 mg PO DAILY 05/16/20 10/01/24 History simvastatin 10 mg tablet 10 mg PO DAILY 05/16/20 10/01/24 History acyclovir 200 mg capsule 200 mg PO DAILY PRN cold sores #60 04/21/21 10/01/24 Rx caps peg 3350-electrolytes 236 240 ml PO Q10M #4,000 mL 09/14/24 Rx gram-22.74 gram-6.74 gram-5.86 gram solution (Golytely) Allergies Allergy/AdvReac Type Severity Reaction Status Date / Time latex Allergy Mild SKIN Verified 10/01/24 07:45 IRRITATION erythromycin base AdvReac Mild GI UPSET Verified 10/01/24 07:45 Exam Vital Signs (past 8 hours): - 10/01/24 07:49 Temperature 97.3 F L Pulse Rate 77 Respiratory Rate 16 Blood Pressure 133/87 Pulse Oximetry 100 Oxygen Delivery Method Room Air Oxygen Delivery Method Room Air Narrative Exam Narrative: Oropharynx free of lesions Chest clear to auscultation percussion Cardiac exam reveals no S3 or murmur Assessment & Plan Assessment & Plan narrative: Need for 10 year screening colonoscopy. Risks, benefits, alternatives have been explained. Time-Based Coding :: [TOTAL MINUTES] spent with patient and on the chart (including review of chart, obtaining history, exam, reviewing outside data, placing orders, documenting exam and treatment plan, and counseling patient) on [DATE]. PROFEE Lead Quality Control Technician Document charge(s): No
--- NOTE | 2024-10-01 08:31 | PM.OP.COLON ---
Operative Date/Time/Diagnoses Date of procedure: 10/01/24 Pre-op diagnosis: See indication and findings Procedure & Clinicians Study performed: Colonoscopy Same procedure as scheduled: Yes Indications: Screening Surgeon: Sánchez Nava Procedure Notes Procedure in detail: After informed consent was obtained the patient was placed in left lateral decubitus position. The colonoscope was introduced the rectum slowly advanced cecum. The preparation was good. On slow withdrawal mucosa was carefully examined. The scope was removed. The patient tolerated procedure well. Blood loss none Complications none Sedation mac Findings 1. Very tortuous colon in the sigmoid eventually under control with significant careful compression 2. Otherwise completely negative colonoscopy to cecum. Patient should have colonoscopy in 10 years
[2024-10-01 09:15] VITALS: BP 107/57; PULSE 80; RESP 16; TEMP 36.4; O2SAT 97
[2024-10-01 09:20] VITALS: BP 111/62; PULSE 81; RESP 18; O2SAT 100
[2024-10-01 09:25] VITALS: BP 112/71; PULSE 85; RESP 12; O2SAT 98
[2024-10-01 09:30] VITALS: BP 128/67; PULSE 85; RESP 14; TEMP 36.4; O2SAT 98
== END 2024-10-01 09:57 | disposition home or self-care (01) ==
PROVIDERS: Family Provider Internal Medicine; PCP Family Medicine; Referring Provider Internal Medicine Gastroenterology; Visit Provider Internal Medicine Gastroenterology
PROC: 0DJD8ZZ Inspection of Lower Intestinal Tract, Via Natural or Artificial Opening Endoscopic (ICD-10-PCS; CPT 45378; principal; 2024-10-01 08:30)
DX: Z12.11 Encounter for screening for malignant neoplasm of colon (principal)
CPT/HCPCS: G0121; J2405; J2704

== ENCOUNTER → 2025-04-09 13:30 | Outpatient (CLI) | payer OTHER, SELFPAY ==
[2018-07-19 22:35] VITALS: BMI 21.9
--- NOTE | 2025-04-09 13:30 | DI.MG.S_ITS ---
MM screening mammo BI: 04/09/2025. BI-RADS: 2 CLINICAL: 69-year old female for bilateral screening mammogram. No Tyrer-Cuzick risk score calculation due to the patient's personal history of breast cancer. Patient reports a history of right breast carcinoma. Status-post right lumpectomy with chemotherapy and hormonal therapy. No first-degree family history of breast cancer. The patient had prior bilateral breast biopsies. PRIOR EXAMS 03/26/2024, 02/21/2023, 02/05/2022, 12/31/2020, MAMMOGRAPHY TECHNIQUE: 2D and 3D (tomosynthesis) digital mammographic views obtained, with additional images as needed for full coverage. Current study was also evaluated with a Computer Aided Detection (CAD) system. DENSITY C. The breasts are heterogeneously dense, which may obscure small masses. MAMMOGRAPHY FINDINGS Right: Benign-appearing post-surgical changes noted on the right. There are no suspicious masses, calcifications, or other findings in the breast. Left: Biopsy marker present on the left. There are no suspicious masses, calcifications, or other findings in the breast. IMPRESSION: * No evidence of malignancy with benign findings. RECOMMENDATIONS Bilateral * Annual screening mammography. OVERALL ASSESSMENT CATEGORY BI-RADS-2: Benign. The [employer] recommends annual screening mammography beginning at age 40 for women with average risk of breast cancer. ELECTRONICALLY SIGNED: Mundo Castillo M.D. on 04/10/2025 at 10:23:46 AM PT Interpreting Station ID: [id number]
== END ==
PROVIDERS: Family Provider Internal Medicine; PCP Family Medicine; Referring Provider Family Medicine; Visit Provider Family Medicine
DX: Z12.31 Encounter for screening mammogram for malignant neoplasm of breast (principal); R92.333 Mammographic heterogeneous density, bilateral breasts; Z85.3 Personal history of malignant neoplasm of breast
CPT/HCPCS: 77063; 77067